=== PATIENT | female | born 1965 | race Caucasian/White ===

== ENCOUNTER 2016-08-19 10:25 | Day surgery (SDC) | payer OTHER ==
--- NOTE | 2016-08-17 18:46 | PREOP HISTORY & PHYSICAL ---
DATE OF ADMISSION/SURGERY: 08/19/2016. IDENTIFICATION: This is a 50-year-old G1, P1-0-0-1. HISTORY OF PRESENT ILLNESS: The patient presents today for her preoperative visit. Initially, she had been scheduled for a 08/19/2016 hysteroscopy, dilatation and curettage, and endometrial ablation via NovaSure. She has had a history of heavy menstrual bleeding, as well as painful periods. She did hav e an endometrial ablation in 2012, but unfortunately at this beginning of this year, she has been hav ing heavier and heavier bleeding. She states that she bleeds for 5 days and then after her menses, sh e will spot for 2 weeks. Her pain is 7/10 with respect to pain control. The pain is so bad she has to stay home. She currently denies any history with menopausal symptoms such as hot flashes, night swea ts, and mood swings. I discussed with the patient the risks, benefits, alternatives, indications and expectations of a hys teroscopy, dilatation and curettage, and endometrial ablation. Included in our discussion were the ri sk of hemorrhage, infection, and damage to surrounding organs. The most common complication is uterin e perforation. With this procedure, it may be more difficult to diagnose a hidden endometrial cancer. Also, with this procedure, it will not resolve her painful periods, just the bleeding. The goal of t his procedure is to have normal menses. After patient's questions were answered to her satisfaction, she verbalized desire to proceed with surgery. Consent forms have been signed. The patient is currently doing well, denies any nausea, vomiting, fevers, chills, diarrhea or constip ation. PAST MEDICAL HISTORY: None. PAST SURGICAL HISTORY 1. On 02/22/2013, endometrial ablation. 2. Appendectomy. 3. Laparoscopic bilateral tubal sterilization. 4. History of spinal stenosis surgery. MEDICATIONS: control pills, levonorgestrel ethinyl estradiol 0.1/20 mg. SOCIAL HISTORY: The patient denied any tobacco or illicit drug use. She does consume alcohol on a soc ial basis. The patient's son is Geovany, and her pharmacy of choice is [facility] in [place]. Her prima ry care is Radha Gonsalves. PAST OBSTETRICAL HISTORY: One term spontaneous vaginal delivery. PAST GYNECOLOGIC HISTORY: She denies any abnormal Pap smears. History of heavy endometrial bleeding a nd painful periods. On 01/09/2013, endometrial biopsy showed benign secretory phase endometrium. On 0 05/20/2013, Pap smear and high-risk human papilloma screens were both negative. On 04/14/2016, Pap sme ar and HPV screens are negative. On 03/13/2016, [facility] pelvic ultrasound shows the uterus is midline and anteverted, measuring 95 x 60 x 70 mm in diameter, endometriosis, homogeneous and echotexture, which shows no discrete leiomyomata and 3 mm echogenic foci with ring down artifact identified in the lowe r uterine segment. Endometrium 11 mm in diameter. Endometrial echo complex abnormal in appearance wit h endometrial cystic change measuring less than 9 mm. No vascularity or discrete mass is identified. Right ovary measures 33 x 41 x 25 mm. Simple dominate anechoic cyst measuring 39x 20 x 29 mm. Left ov heather measures 21 x 17 x 12 mm. No free fluid. FAMILY HISTORY: Noncontributory. REVIEW OF SYSTEMS: Negative unless otherwise stated. PHYSICAL EXAMINATION VITAL SIGNS: Weight is 211 pounds. Height is 64 inches. BMI 36.2. BP 114/78. GENERAL: The patient is a well-developed, well-nourished female in no apparent distress. Sh e is alert and oriented x3. HEAD, EYES, EARS, NOSE AND THROAT: Within normal limits. The patient does wear glasses and she is a r edhead. CARDIOVASCULAR: Rate is regular. No murmurs or rubs. PULMONARY: Lungs clear to auscultation bilaterally. ABDOMEN: Soft, nontender. No masses, rebound, rigidity or guarding. ASSESSMENT 1. A 50-year-old G1, P1-0-0-1. 2. Heavy menstrual bleeding. 3. History of previous endometrial ablation on 02/22/2013. PLAN 1. We will proceed to a scheduled hysteroscopy, dilatation and curettage and endometrial ablation on 08/19/2016. 2. The patient is to take ibuprofen and Tylenol after surgery. I have given her a prescription for Vi codin for any breakthrough pain she may have. 3. The patient to get a test at [facility], a urine test, today for preo perative workup. 4. Anticipate seeing the patient in 2 weeks for a postoperative visit. JOB #: [id number] EXT JOB #:[id number]
[~2016-08-19 10:25] MED LIST: CELECOXIB 100 MG CAPSULE PO ONE
[2016-08-19 10:49] LABS: HCG UR QUAL NEGATIVE
[2016-08-19] MEDS ORDERED: LACTATED RINGERS 1,000 ML IV ONE ×2 (11:03→14:15)
[2016-08-19] MEDS ORDERED: PROPOFOL 200 MG/20 ML VIAL IVP ONE (13:30)
[2016-08-19] MEDS ORDERED: fentaNYL 100 MCG/2 ML VIAL IVP ONE (13:30)
[2016-08-19] MEDS ORDERED: LIDOCAINE-MPF 2% 2 ML AMP SUBQ ONE (13:30)
[2016-08-19] MEDS ORDERED: DEXAMETHASONE 4 MG/ML VIAL IVP ONE (13:30)
[2016-08-19] MEDS ORDERED: ONDANSETRON 4 MG/2 ML VIAL IVP ONE (13:30)
[2016-08-19] MEDS ORDERED: MIDAZOLAM 2 MG/2 ML VIAL IVP ONE (13:30)
--- NOTE | 2016-08-19 14:05 | OPERATIVE REPORT ---
Operative Report - Other Other Information/Narrative: Date of Operation: 08/19/2016 Surgeon: Velvet Caban DO FACOG Chemist Pharmaceutical: None Legal Billing Specialist: Saturnino Martines CRNA Anesthesia: GET Pre-Op Dx: 1. 50 yo 2. Heavy menstrual bleeding Post-op Dx: 1. 50 yo 2. Heavy menstrual bleeding Procedures: 1. Hysteroscopy 2. Dilation and curettage 3. Failed Novasure ablation Findings: Normal cervix, endometrium. Endometrial length 3 cm, width 0 cm. Specimens: Endometrial curettings Drains: None EBL: <5 mL Complications: None
--- NOTE | 2016-08-19 14:32 | OPERATIVE REPORT ---
DATE OF SURGERY: 08/19/2016 00:00:00 PREOPERATIVE DIAGNOSES 1. A 50-year-old G1, P1-0-0-1. 2. Heavy menstrual bleeding. POSTOPERATIVE DIAGNOSES 1. A 50-year-old G1, P1-0-0-1. 2. Heavy menstrual bleeding. PROCEDURES 1. Hysteroscopy. 2. Dilatation and curettage. 3. Failed NovaSure ablation. SURGEON: Velvet Caban DO CERTIFIED NURSE MIDWIFE: None. CREDIT ADVISOR: Saturnino Martines CRNA ANESTHESIA: General endotracheal tube. FINDINGS: Normal cervix and endometrium. Endometrial length was 3 cm, width was 0 cm. SPECIMENS: Endometrial curettings. DRAINS: None. ESTIMATED BLOOD LOSS: Less than 5 mL. COMPLICATIONS: None. BRIEF HISTORY: This is a patient with [facility] who has had a history of heavy mens trual bleeding. I discussed with the patient the risks, benefits, alternatives, indications and expec tations of a hysteroscopy, dilatation and curettage and NovaSure endometrial ablation, including in o ur discussion the risk of infection, hemorrhage, and damage to surrounding organs. The most common co mplication with this procedure is uterine perforation. The patient understands that the goal of this procedure is to have normal menses but some women do experience amenorrhea. After all the patient's q uestions were answered to her satisfaction, she verbalized her desire to proceed with surgery. Consen t forms have been signed. OPERATION IN DETAIL: The patient was identified, consented, and taken to the operating room where IV access was already in place. She was then given sequential compression devices, which were placed on her lower extremities and turned on. The patient was then given satisfactory general endotracheal tub e anesthesia as per Saturnino Martines. She was then prepped and draped in normal sterile fashion in litho emory position using Yellofin stirrups. Antibiotics were not indicated in this case. A timeout was per formed, which correctly identified the patient, site of the procedure, and the procedures themselves. A single-toothed tenaculum was placed on the anterior lip of the cervix and the cervix was then seria lly dilated to 8-[place] Islander. Endometrial length was noted to be 3 cm. Hysteroscopy was then performed usi ng normal saline solution. Endometrium had a fluffy appearance consistent with the proliferative phas e. There were no abnormal polyps or fibroids seen. There were also no abnormal masses. Curettage was then performed sharply. Specimen was handed off the field and sent in a formalin bottle to Pathology. NovaSure endometrial ablation was then attempted. Unfortunately, the endometrium did not meet criteri a for the ablation and the NovaSure never got to fire. At this point in time, I decided to stop surge ry. I will have to discuss with the patient other forms of controlling her heavy bleeding other than ablation. She does have an appointment to see me in 2 weeks at [facility] to discuss her findings. The patient tolerated the procedure well, was taken back to recovery room in stable condition. She wi ll be discharged home later today after postoperative criteria are met. [facility] forms of controlling her bleeding, which may include control pills, the Mirena IUD and hysterectomy for definitive treatment. JOB #: [id number] EXT JOB #:[id number]
[2016-08-19 15:08] VITALS: BP 150/95
== END 2016-08-19 10:26 | disposition home or self-care (01) ==
LOC: SDS 10:25
PROVIDERS: ATTEND Obstetrics & Gynecology
PROC: 0UDB8ZZ Extraction of Endometrium, Via Natural or Artificial Opening Endoscopic (ICD-10-PCS; principal; 2016-08-19 11:30)
DX: N94.6 Dysmenorrhea, unspecified (principal); N92.0 Excessive and frequent menstruation with regular cycle
CPT/HCPCS: 58558; 81025; 88305; A9270; J7120

== ENCOUNTER → 2016-12-04 | Outpatient (CLI) | payer OTHER | LOC: LAB.R 08:00 | PROVIDERS: ATTEND Obstetrics & Gynecology | DX: N76.0 Acute vaginitis (principal) | CPT/HCPCS: 87480; 87510; 87660 ==

== ENCOUNTER 2019-09-04 14:36 | Outpatient (CLI) | payer OTHER ==
--- NOTE | 2019-09-08 11:26 | Mammography Report ---
BILATERAL DIGITAL SCREENING MAMMOGRAM 3D/2D WITH CAD: 09/04/2019 CLINICAL: Routine screening. Comparison is made to exam dated: 12/23/2012 mammogram - [facility]. There are sca ttered fibroglandular elements in both breasts. Current study was also evaluated with a Computer Aided Detection (CAD) system. No significant masses, calcifications, or other findings are seen in either breast. There has been no significant interval change. IMPRESSION: NEGATIVE There is no mammographic evidence of malignancy. A 1 year screening mammogram is recommended. This exam was interpreted at Station ID: [id number]. NOTE: For mammograms, a report in lay terms will be sent to the patient. Approximately 15% of breast malignancies will not be visualized mammographically. In the management of a palpable breast mass, a negative mammogram must not discourage biopsy of a clinically suspicious lesion. Electronically Signed By: Marcell Esposito M.D. aty/penrad:09/04/2019 16:58:44 ACR BI-RADS Category 1: Negative 3341F PARENCHYMAL PATTERN: (A) - The breast(s) demonstrate(s) scattered fibroglandular densities. BI-RADS CATEGORY: (1) - 1 RECOMMENDATION: (ANNUAL) - Recommend routine annual screening mammography. [id number] 1 year screening LATERALITY: (B)
== END 2019-09-04 14:37 | disposition home or self-care (01) ==
LOC: DI 14:36
DX: Z12.31 Encounter for screening mammogram for malignant neoplasm of breast (principal)
CPT/HCPCS: 77063; 77067

== ENCOUNTER 2023-10-21 04:59 | Emergency (ER) | payer OTHER ==
[2023-10-21 05:22] VITALS: O2SAT 98
[2023-10-21] MEDS: OXYMETAZOLINE HCL 100 SPRAYS BOTTLE NAS STA (05:23)
--- NOTE | 2023-10-21 07:15 | ED Physician Documentation ---
History of Present Illness - Stated complaint Stated Complaint: BLOODY NOSE - Chief complaint Chief Complaint: Heent - History obtained from History obtained from: Patient - Additonal information Additional information: 58yF p/w spontaneous R sided epistaxis tonight while sleeping. no blood thinners, no history of trauma. PD PAST MEDICAL HISTORY - Past Medical History Past Medical History: Yes Cardiovascular: Hypertension Respiratory: None Endocrine/Autoimmune: None GI: None : None HEENT: None Psych: None Musculoskeletal: Other Derm: None - Past Surgical History Past Surgical History: Yes General: Appendectomy Ortho: Arthroscopic surgery, Other /MEDICARE INSURANCE SPECIALIST: Endometrial ablation, Tubal ligation - Present Medications Home Medications: Ambulatory Orders Medication Instructions Recorded Confirmed Lisinopril/Hydrochlorothiazide 1 each PO DAILY 10/21/23 10/21/23 [Zestoretic 20-12.5 mg Tablet] - Allergies Allergies/Adverse Reactions: Allergies Allergy/AdvReac Type Severity Reaction Status Date / Time No Known Drug Allergies Allergy Verified 10/21/23 05:15 - Social History Does the pt smoke?: No Smoking Status: Never smoker Does the pt drink ETOH?: No Does the pt have substance abuse?: No - Immunizations Immunizations are current?: Yes - POLST Patient has POLST: No PD ED PE NORMAL - Vitals Vital signs reviewed: Yes - General General: Alert and oriented X 3, No acute distress, Well developed/nourished - HEENT HEENT: Atraumatic, PERRL, EOMI, Moist mucous membranes, Pharynx benign, Other (R sided epistaxis resolved upon arrival) Results - Vitals Vitals: Vital Signs - 24 hr 10/21/23 05:00 Temperature 36.9 C Heart Rate 80 Respiratory 18 Rate Blood Pressure 144/67 H O2 Saturation 98 Oxygen O2 Source Room air PD Medical Decision Making - ED course ED course: 58yF p/w epistaxis, now resolved in the ed s/p afrin and direct pressure. Examined the area and no signs of active bleeding. Return precautions given. plan to f/u routinely with pcp. Departure - Departure Disposition: 01 Home, Self Care Clinical Impression: Epistaxis Condition: Stable Instructions: ED Nosebleed Comments: You were seen in the emergency department for nosebleed. Please follow-up with your primary care provider and return to the emergency department if you have any new or worsening symptoms or other concerns.
[2023-10-21 07:53] VITALS: BP 124/80
== END 2023-10-21 07:44 | disposition home or self-care (01) ==
LOC: ED 04:59
DX: R04.0 Epistaxis (principal)
CPT/HCPCS: 99282; 99283; A9270